=== PATIENT | female | born 1955 | race Caucasian/White ===

== ENCOUNTER 2016-08-24 13:53 | Inpatient (IN) | payer OTHER ==
[~2016-08-24] VITALS: Ht 147.3 cm; Wt 49.6 kg
[2016-08-24] MEDS ORDERED: DUONEB INH ONE ×2 (15:56)
[2016-08-24] MEDS ORDERED: SODIUM CHLORIDE 0.9% 1,000 ML ONE ×3 (16:08→18:14)
[2016-08-24] MEDS ORDERED: METHYLPRED SOD SUCC 125 MG/2 ML VIAL ONE (16:08)
[2016-08-24] MEDS ORDERED: SODIUM CHLORIDE 0.9% 100 ML IV ONE (17:41)
[2016-08-24] MEDS ORDERED: SODIUM CHLORIDE 0.9% 250 ML IV ONE (17:41)
[2016-08-24] MEDS ORDERED: CEFTRIAXONE 1 GM VIAL ONE (17:41)
[2016-08-24] MEDS ORDERED: AZITHROMYCIN 500 MG VIAL IV ONE (17:41)
[2016-08-24] MEDS ORDERED: NEB-XOPENEX 1.25 MG/3 ML INH PRN (18:05)
[2016-08-24] MEDS ORDERED: SALINE FLUSH 10 ML FLUSH PRN (18:05)
[2016-08-24] MEDS ORDERED: SODIUM CHLORIDE 0.9% 1,000 ML IV SCH (18:05)
[2016-08-24] MEDS ORDERED: ACETAMIN/BUTALB/CAFF PO PRN (18:10)
[2016-08-24 19:15] VITALS: Ht 147.3 cm; Wt 49.6 kg
[2016-08-24 19:34] VITALS: BP_SYST 101; BP_SYST 106; RESP 18; TEMP 99.4
[2016-08-24] MEDS ORDERED: MISSING DOSE XX ONE (20:45)
[2016-08-24] MEDS: NICOTINE 21 MG/24 HR TRANSDERM SCH (21:34)
[2016-08-24] MEDS: CYCLOBENZAPRINE 10 MG TAB PO SCH (21:34)
[2016-08-24] MEDS: SALINE FLUSH 10 ML FLUSH SCH (21:34)
[2016-08-24] MEDS: SODIUM CHLORIDE 0.9% FLUSH BAG 500 ML IV SCH (22:21)
[2016-08-24] MEDS: METHYLPRED SOD SUCC 40 MG VIAL IV SCH (23:03)
[2016-08-24] MEDS: SODIUM CHLORIDE 0.9% 1,000 ML IV SCH (23:03)
[2016-08-24 23:30] VITALS: BP_SYST 84; RESP 18; TEMP 97.7
[2016-08-24 23:31] VITALS: RESP 16
[2016-08-24] MEDS: NEB-BROVANA 15 MCG/2 ML INH SCH (23:31)
[2016-08-25 03:34] VITALS: BP_SYST 94; RESP 17; TEMP 97.9
[2016-08-25] MEDS: DICYCLOMINE 20 MG TAB PO SCH ×3 (06:14→16:09)
[2016-08-25] MEDS: NEB-BROVANA 15 MCG/2 ML INH SCH ×3 (07:00→20:09)
[2016-08-25 07:50] VITALS: BP_SYST 98; RESP 17; TEMP 97.7
[2016-08-25] MEDS: SALINE FLUSH 10 ML FLUSH SCH ×2 (10:16→20:29)
[2016-08-25] MEDS: CEFTRIAXONE 1 GM in SODIUM CHLORIDE 0.9% 50 ML IV SCH (10:16)
[2016-08-25] MEDS: NICOTINE 21 MG/24 HR TRANSDERM SCH (10:16)
[2016-08-25] MEDS: KCL CR 20 MEQ TAB PO SCH ×3 (10:17→20:29)
[2016-08-25] MEDS: ENOXAPARIN 40 MG/0.4 ML SYR SUBQ SCH (10:17)
[2016-08-25] MEDS: CYCLOBENZAPRINE 10 MG TAB PO SCH ×3 (10:17→20:29)
[2016-08-25] MEDS: METHYLPRED SOD SUCC 40 MG VIAL IV SCH ×3 (10:18→23:44)
[2016-08-25 11:10] VITALS: BP_SYST 100; RESP 16; TEMP 98.3
[2016-08-25 15:28] VITALS: BP_SYST 112; RESP 16; TEMP 99.8
[2016-08-25 19:30] VITALS: BP_SYST 104; RESP 16; TEMP 98.6
[2016-08-25] MEDS: DUONEB INH SCH (20:09)
[2016-08-25] MEDS: SODIUM CHLORIDE 0.9% FLUSH BAG 500 ML IV SCH (22:32)
[2016-08-26 02:23] VITALS: BP_SYST 92; RESP 16; TEMP 98.3
[2016-08-26 04:52] VITALS: BP_SYST 106; RESP 16; TEMP 97.5
[2016-08-26] MEDS: DICYCLOMINE 20 MG TAB PO SCH ×4 (06:09→11:32)
[2016-08-26] MEDS: NEB-BROVANA 15 MCG/2 ML INH SCH ×2 (07:19→19:17)
[2016-08-26] MEDS: DUONEB INH SCH ×3 (07:19→19:17)
[2016-08-26 07:45] VITALS: BP_SYST 110; RESP 18; TEMP 98.5
[2016-08-26] MEDS: SALINE FLUSH 10 ML FLUSH SCH ×2 (08:00→09:20)
[2016-08-26] MEDS: CYCLOBENZAPRINE 10 MG TAB PO SCH ×3 (09:21→20:31)
[2016-08-26] MEDS: METHYLPRED SOD SUCC 40 MG VIAL IV SCH (09:21)
[2016-08-26] MEDS: CEFTRIAXONE 1 GM in SODIUM CHLORIDE 0.9% 50 ML IV SCH (09:21)
[2016-08-26] MEDS: KCL CR 20 MEQ TAB PO SCH ×3 (09:22→20:31)
[2016-08-26] MEDS: ENOXAPARIN 40 MG/0.4 ML SYR SUBQ SCH (09:22)
[2016-08-26] MEDS: NICOTINE 21 MG/24 HR TRANSDERM SCH (09:23)
[2016-08-26 11:45] VITALS: BP_SYST 110; RESP 18; TEMP 97.8
[2016-08-26] MEDS ORDERED: AZITHROMYCIN 250 MG TAB PO ONE (15:45)
[2016-08-26 15:55] VITALS: BP_SYST 100; RESP 18; TEMP 98.6
[2016-08-26] MEDS: SODIUM CHLORIDE 0.9% 1,000 ML IV SCH (20:31)
[2016-08-26 21:01] VITALS: BP_SYST 99; RESP 18; TEMP 98.4
[2016-08-27 00:30] VITALS: BP_SYST 118; RESP 16; TEMP 98
[2016-08-27 04:00] VITALS: BP_SYST 108; RESP 18; TEMP 98.6
[2016-08-27] MEDS: SODIUM CHLORIDE 0.9% FLUSH BAG 500 ML IV SCH (05:17)
[2016-08-27] MEDS: SODIUM CHLORIDE 0.9% 1,000 ML IV SCH (06:01)
[2016-08-27] MEDS: DICYCLOMINE 20 MG TAB PO SCH ×3 (06:01→16:16)
[2016-08-27] MEDS: DUONEB INH SCH ×3 (07:18→19:43)
[2016-08-27] MEDS: NEB-BROVANA 15 MCG/2 ML INH SCH ×2 (07:18→19:43)
[2016-08-27 07:44] VITALS: BP_SYST 112; RESP 14; TEMP 99.4
[2016-08-27] MEDS: CEFTRIAXONE 1 GM in SODIUM CHLORIDE 0.9% 50 ML IV SCH (08:48)
[2016-08-27] MEDS: ENOXAPARIN 40 MG/0.4 ML SYR SUBQ SCH (08:49)
[2016-08-27] MEDS: KCL CR 20 MEQ TAB PO SCH ×3 (08:49→22:10)
[2016-08-27] MEDS: NICOTINE 21 MG/24 HR TRANSDERM SCH (08:49)
[2016-08-27] MEDS: CYCLOBENZAPRINE 10 MG TAB PO SCH ×3 (08:50→22:10)
[2016-08-27] MEDS: PREDNISONE 20 MG TAB PO SCH (08:50)
[2016-08-27] MEDS: AZITHROMYCIN 250 MG TAB PO SCH (08:50)
[2016-08-27] MEDS: SALINE FLUSH 10 ML FLUSH SCH ×2 (08:50→22:10)
[2016-08-27 12:22] VITALS: BP_SYST 112; RESP 18; TEMP 99.3
[2016-08-27 15:25] VITALS: BP_SYST 102; RESP 14; TEMP 99
[2016-08-27 20:23] VITALS: BP_SYST 100; RESP 18; TEMP 98.2
[2016-08-28] VITALS: BP_SYST 123; RESP 18; TEMP 97.8
[2016-08-28 03:00] VITALS: BP_SYST 107; RESP 16; TEMP 98.6
[2016-08-28] MEDS: DICYCLOMINE 20 MG TAB PO SCH ×2 (05:35→11:06)
[2016-08-28] MEDS: SODIUM CHLORIDE 0.9% FLUSH BAG 500 ML IV SCH (05:35)
[2016-08-28 07:23] VITALS: BP_SYST 107; RESP 20; TEMP 98.6
[2016-08-28] MEDS: DUONEB INH SCH ×2 (07:31→10:59)
[2016-08-28] MEDS: NEB-BROVANA 15 MCG/2 ML INH SCH (07:31)
[2016-08-28] MEDS: CEFTRIAXONE 1 GM in SODIUM CHLORIDE 0.9% 50 ML IV SCH (08:33)
[2016-08-28] MEDS: SALINE FLUSH 10 ML FLUSH SCH (08:34)
[2016-08-28] MEDS: NICOTINE 21 MG/24 HR TRANSDERM SCH (08:34)
[2016-08-28] MEDS: ENOXAPARIN 40 MG/0.4 ML SYR SUBQ SCH (08:34)
[2016-08-28] MEDS: CYCLOBENZAPRINE 10 MG TAB PO SCH (08:35)
[2016-08-28] MEDS: PREDNISONE 20 MG TAB PO SCH (08:35)
[2016-08-28] MEDS: KCL CR 20 MEQ TAB PO SCH (08:35)
[2016-08-28] MEDS: AZITHROMYCIN 250 MG TAB PO SCH (08:35)
[2016-08-28 10:13] VITALS: BP_SYST 107; RESP 20; TEMP 98.6
[2016-08-28 11:27] VITALS: BP_SYST 108; BP_SYST 90; RESP 18; TEMP 97
[2016-08-28] MEDS ORDERED: Furosemide 40 MG/4 ML VIAL IV ONE (12:25)
== END 2016-08-28 13:39 | disposition home or self-care (01) | DRG 191 ==
LOC: ENRESERVDT → ENRESERVTM → ER 13:53 → ENPENDDIS 18:01 → EMR 18:01 → PCU2 20:53
PROVIDERS: ADMIT Internal Medicine; ATTEND Internal Medicine
DX: J44.1 Chronic obstructive pulmonary disease with (acute) exacerbation (principal); I42.9 Cardiomyopathy, unspecified; F17.200 Nicotine dependence, unspecified, uncomplicated; R19.7 Diarrhea, unspecified
CPT/HCPCS: 36415; 71010; 71020; 80048; 80053; 81001; 82553; 83605; 83880; 84484; 85025; 85379; 86738; 87040; 87278; 87299; 87804; 93005; 94640; 94799; 96361; 96365; 96367; 96375; 99223; 99232; 99233; 99238